=== PATIENT | male | born 1955 | race Caucasian/White ===

== ENCOUNTER 2018-03-11 09:24 | Emergency (ER) | payer MEDICARE, OTHER ==
[~2018-03-11] VITALS: Ht 177.8 cm; Wt 100.0 kg
[2018-03-11 09:30] VITALS: TEMP 98.6
[2018-03-11 09:47] LABS: BASO # 0.1 (0.0-0.2); BASO % 0.5 % (0.0-2.0); EOS # 0.1 (0.0-0.7); EOS % 0.6 % (0-4.0); GRAN # 15.6 (1.4-6.5); GRAN % 81.3 % (42.2-75.2); HEMOGLOBIN 15.8 g/dl (13.5-18.0); LYMPH # 1.9 (1.2-3.4); LYMPH % 9.8 % (20.0-51.0); MEAN CELL VOLUME 92 fl (80.0-100.0); MEAN CORPUSCULAR HEMOGLOBIN 32 pg (27.0-31.0); MEAN CORPUSCULAR HGB CONC 34 g/dl (33.0-37.0); MEAN PLATELET VOLUME 8.9 fl (7.4-10.4); MONO # 1.3 (0.1-0.6); MONO % 6.8 % (1.7-9.3); PLATELET COUNT 264 K/mm3 (130-400); RED BLOOD COUNT 4.99 M/mm3 (4.20-5.60); REDCELL DISTRIBUTION WIDTH-CV 14.8 % (11.5-14.5)
[2018-03-11 09:50] LABS: INR 1.1 (0.8-3.0); PROTHROMBIN TIME 12.7 SECONDS (9.7-12.8)
[2018-03-11 09:53] LABS: PARTIAL THROMBOPLASTIN TIME 30.6 SECONDS (26.0-37.0)
[2018-03-11 09:58] LABS: ALBUMIN 3.7 gm/dL (3.5-5.0); BILIRUBIN,TOTAL 1.7 mg/dL (0.0-1.0); CALCIUM 9.3 mg/dL (8.4-10.2); CREATININE, serum 1.25 mg/dL (0.66-1.25); POTASSIUM 4.4 mmol/L (3.4-5.0); TOTAL PROTEIN 7.4 gm/dL (6.4-8.2)
[2018-03-11 10:11] LABS: TROPONIN-I 0.051 ng/mL (0.000-0.034)
[2018-03-11] MEDS ORDERED: SINGULAIR 110 MG/TAB PO (10:59)
[2018-03-11] MEDS ORDERED: PRILOSEC 20MG20 MG PO (11:00)
[2018-03-11] MEDS ORDERED: LIPITOR20 MG PO (11:00)
[2018-03-11] MEDS ORDERED: PREDNISONE10 MG PO (11:00)
[2018-03-11] MEDS ORDERED: BACTRIM DS 8001 TAB PO (11:01)
[2018-03-11] MEDS ORDERED: PRINIVIL20 MG PO (11:01)
[2018-03-11] MEDS ORDERED: CELLCEPT500 M1 PO (11:02)
[2018-03-11] MEDS ORDERED: PLAQUENIL 200M200 MG PO (11:03)
[2018-03-11] MEDS ORDERED: CYMBALTA 30MG30 MG PO (11:03)
[2018-03-11 11:14] LABS: ARTERIAL BLD GAS O2 SATURATION 85.5 % (92-100); ARTERIAL BLD GAS TCO2 CT 26.9; ARTERIAL BLOOD GAS PCO2 62.4 mmHg (35-45); ARTERIAL BLOOD GAS PO2 62.3 mmHg (80-100); ARTERIAL BLOOD GAS pH 7.22 (7.35-7.45)
[2018-03-11 11:32] LABS: ARTERIAL BLD GAS O2 SATURATION 96.5 % (92-100); ARTERIAL BLD GAS TCO2 CT 25.5; ARTERIAL BLOOD GAS HCO3 23.9 meq/L (22-26); ARTERIAL BLOOD GAS PCO2 54.4 mmHg (35-45); ARTERIAL BLOOD GAS PO2 104.1 mmHg (80-100); ARTERIAL BLOOD GAS pH 7.26 (7.35-7.45)
[2018-03-11 11:56] LABS: COLLECTION METHOD CATHETER
[2018-03-11 12:07] LABS: HYALINE CAST >12 /lpf; MUCOUS Present /lpf; PH 6 (5-8); SQUAMOUS EPITHELIAL 0-2 /hpf; URINE APPEARANCE Hazy; URINE BACTERIA None Seen /hpf; URINE BILIRUBIN Negative (NEGATIVE); URINE BLOOD Negative (NEGATIVE); URINE COLOR Amber; URINE GLUCOSE Negative (NEGATIVE); URINE KETONE Negative (NEGATIVE); URINE LEUKOCYTE ESTERASE Negative (NEGATIVE); URINE NITRATE Negative (NEGATIVE); URINE PROTEIN(semi-quant) 1+ (NEGATIVE); URINE UROBILINOGEN >=4.0 mg/dL (NEGATIVE)
[2018-03-11 12:23] VITALS: BP 89/59; PULSE 125
== END 2018-03-11 12:02 | disposition short-term general hospital (02) ==
LOC: COL.ER 09:24
PROVIDERS: Family Medicine
DX: J81.1 Chronic pulmonary edema (principal); J84.10 Pulmonary fibrosis, unspecified; M06.9 Rheumatoid arthritis, unspecified; Z79.52 Long term (current) use of systemic steroids
CPT/HCPCS: J0330; J2185; J2250; J3370; J7030; J7050; Q9967